=== PATIENT | male | born 1955 | race Caucasian/White ===

== ENCOUNTER 2018-08-25 07:30 | Inpatient (IN) | payer BC ==
--- NOTE | 2018-08-14 13:37 | HP ---
HISTORY AND PHYSICAL: DATE OF ADMISSION/SURGERY: 08/25/18 DATE OF OFFICE VISIT: 08/14/18 SURGEON: Jana Pritchard MD.* (DICTATED BY DANIEL JIMENEZ) PROCEDURE: Right total knee arthroscopy. CHIEF COMPLAINT: Right left knee pain. HISTORY OF PRESENT ILLNESS: Mr. Amezquita is a 63-year-old gentleman with continued complaints of right knee pain. He has failed conservative treatment and elected to proceed with a right total knee arthroscopy. PAST MEDICAL HISTORY: Denies. PAST SURGICAL HISTORY: Cataract surgery and surgery for detached retina. CURRENT MEDICATIONS: None. ALLERGIES: None. FAMILY HISTORY: Diabetes, cancer, and coronary artery disease. SOCIAL HISTORY: He is a 63-year-old gentleman who lives with his . He does not smoke or use drugs. Uses occasional alcohol. REVIEW OF SYSTEMS: A complete 14-point of review of systems was reviewed with the patient and was all negative or noncontributory. He denies history of DVT, PE, hepatitis, HIV, or anesthesia problems. PHYSICAL EXAMINATION GENERAL: He is well developed, well nourished, in no acute distress. VITAL SIGNS: He stands 5 feet 11 inches tall, weighs 193 pounds. Blood pressure 128/76, his heart rate is 68. HEENT: Normocephalic, atraumatic. NECK: Supple. No palpable lymph nodes. PULMONARY: Lungs are clear to auscultation bilaterally. CARDIO: Regular rate and rhythm. Strong S1, S2. ABDOMEN: Soft, nontender, nondistended. NEUROLOGICAL: He is alert and oriented x3. MUSCULOSKELETAL: Right lower extremity: The skin is intact. There are no open wounds or abrasions. There is a moderate joint effusion of the right knee. Range of motion is 10 to 100 degrees of flexion with patellofemoral crepitus. He has a 2+ dorsalis pedis pulse. He is able to dorsiflex and plantarflex and has intact sensation. ASSESSMENT AND PLAN: Mr. Amezquita is a 63-year-old gentleman with end-stage osteoarthritis of the right knee. He has failed conservative treatment and elected to proceed with a right total knee arthroplasty. The surgery is scheduled for 08/25/[address] Pritchard discussed the risks and benefits of the surgery at today's visit and all of his questions were answered. He will follow up with Dr. Pritchard 2 weeks after the surgery. DANIEL JIMENEZ [id number]/[facility] #: [id number] SANGEETA
[~2018-08-25 07:30] MED LIST: Acetaminophen IV 1GM/100ML * 1,000 MG/100 ML VIAL IVPB ONE; Buffered Lidocaine 1% SYRIN* 1 ML/SYRINGE INTRADERM ONE; Dexamethasone IV* 4 MG/ML 1 ML (4 MG) IV SLOW PU ONE; Famotidine IV* 10 MG/ML 2 ML (20 mg) IV ONE; Gabapentin CAP(*) 300 MG PO ONE; Lactated Ringers 1000 ML Bag* 1,000 ML IV SCH; Tranexamic Acid 1,000 MG in NS 0.9% 50 ML* (outpatient use) IV SCH; celeCOXIB CAP* 200 MG PO ONE
--- OUTSIDE RECORDS SUMMARY | 2018-08-25 08:02 | XMS REPORT | Continuity of Care Document ---
:1955 External Reference #:[id number] Author Name Carolyne Aguilar Care Team Providers Name Role Phone Jude Oliva MD Primary Care Physician Unavailable Payers Date Identification Numbers Payment Provider Subscriber Policy Number: [id number] [facility] Victor Manuel Amezquita PayID: [id number] [address] [place] [address] Advance Directives Description No Information Available Problems Date Description Provider Status Onset: 04/10/2018 Localized, primary osteoarthritis Jana Pritchard M.D. Active Family History Date Family Member(s) Observation Comments General Diabetes General caNcer Social History Type Date Description Comments Sex Unknown Lives With Spouse Smokeless Tobacco Never Used Smokeless Tobacco ETOH Use Occasionally consumes alcohol Tobacco Use Start: Unknown Patient has never smoked Smoking Status Reviewed: 08/14/18 Patient has never smoked Exercise Type/Frequency Exercises regularly Allergies, Adverse Reactions, Alerts Description No Known Drug Allergies Medications Medication Date Status Form Strength Qnty SIG Indications Ordering Provider No Active Active Unknown Medications 018 Meloxicam Hx Tablets 15mg 30tabs 1 by mouth M25.561 Jana 018 - every day Reji Pritchard 018 No Active Hx Unknown Medications 014 - 018 No Active Hx Unknown Medications 014 - 014 Oxycodone/Acet Hx Tablets 5-325mg 80tabs 1-2 Jana aminophen 014 - tablets po Reji Pritchard q4-6hours 014 prn pain Medications Administered in Office Medication Date Status Form Strength Qnty SIG Indications Ordering Provider Teo Administered Injection Jana 40MG 018 Reji Pritchard Immunizations Description No Information Available Vital Signs Date Vital Result Comment 08/14/2018 8:14am Height 71 inches 5'11" Weight 193.00 lb Heart Rate 68 /min BP Systolic 128 mmHg BP Diastolic 76 mmHg BMI (Body Mass Index) 26.9 kg/m2 05/11/2018 8:04am Height 71 inches 5'11" Heart Rate 68 /min BP Systolic 122 mmHg BP Diastolic 84 mmHg Body Temperature 97.2 F Pain Level 0 04/10/2018 8:45am Height 71 inches 5'11" Weight 195.50 lb Heart Rate 65 /min BP Systolic 130 mmHg BP Diastolic 82 mmHg Respiratory Rate 17 /min Pain Level 7 BMI (Body Mass Index) 27.3 kg/m2 11/05/2013 8:25am Height 71 inches 5'11" Weight 190.00 lb Heart Rate 74 /min BP Systolic 141 mmHg BP Diastolic 81 mmHg BMI (Body Mass Index) 26.5 kg/m2 10/06/2013 11:56am Height 71 inches 5'11" Weight 190.00 lb Heart Rate 64 /min BMI (Body Mass Index) 26.5 kg/m2 09/03/2013 8:19am Height 71 inches 5'11" Weight 190.00 lb Heart Rate 60 /min BP Systolic 123 mmHg BP Diastolic 80 mmHg BMI (Body Mass Index) 26.5 kg/m2 08/06/2013 8:36am Height 71 inches 5'11" Weight 190.00 lb Heart Rate 72 /min BMI (Body Mass Index) 26.5 kg/m2 07/21/2013 1:20pm Height 71 inches 5'11" Weight 190.00 lb Heart Rate 70 /min BP Systolic 124 mmHg BP Diastolic 83 mmHg BMI (Body Mass Index) 26.5 kg/m2 Results Test Date Facility Test Result H/L Range Note Laboratory test 10/07/2013 [facility] Calcium 9.3 mg/dL N 8.6- 10.[address] [place] [address] [phone] Vitamin D, 25 10/07/2013 [facility] 25-Hydroxy <4.0 ng/mL N Hydroxy [address] Vitamin D2 [place] [address] [phone] 25-Hydroxy Vitamin D3 22 ng/mL N 25-Hydroxy Vitamin D Total 22 ng/mL N 1 1 -- REFERENCE VALUE -- 25-HYDROXY D TOTAL (D2+D3) Optimum levels in the healthy population are 20-50, patients with bone disease may benefit from higher levels within this range. Test Performed by: [facility] [place] [address] Cena: Harsh Lynne III, M.D. Procedures Date Code Description Status 04/10/2018 41775 Inject/Drain Joint/Bursa Major W/O US Completed 11/05/2013 45687 Rad Exam; Ankle Limited Completed 11/05/2013 93206 Rad Exam; Knee, Ap&L Completed 10/19/2013 [id number] Bone Mineral Density Test Completed 10/06/2013 45504 Rad Exam; Tib-Fib Completed 10/06/2013 58217 Rad Exam; Ankle Comp Completed 09/03/2013 89918 Rad Exam; Ankle Comp Completed 09/03/2013 23059 Rad Exam; Tib-Fib Completed 08/06/2013 58011 Rad Exam; Ankle Limited Completed 08/06/2013 35368 Rad Exam; Tib-Fib Completed 07/21/2013 37607 Rad Exam; Ankle Comp Completed 07/21/2013 24703 Rad Exam; Tib-Fib Completed 07/21/2013 25278 Closed TX Prox/Shaft Fibula W/O Manip Completed 10/29/2007 77894 ECHO/Stress Completed 10/29/2007 82964 ECHO/Stress Completed 10/29/2007 54466 ECHO/Stress Completed 10/29/2007 97332 Stress Test Completed 10/29/2007 17468 Stress Test Completed Encounters Type Date Location Provider Dx Diagnosis Office Visit 05/11/2018 Orthopedic Jana Pritchard, M25.561 Pain in right 8:00a [facility] knee M25.461 Effusion, right knee M17.11 Unilateral primary osteoarthritis, right knee Office Visit 04/10/2018 8:30a [facility] Jana Pritchard, M25.561 Pain in right [facility] knee M25.461 Effusion, right knee M17.11 Unilateral primary osteoarthritis, right knee Office Visit 11/05/2013 8:30a [facility] Jana Pritchard, 823.81 FX Unspec Part Of [facility].Rodney Mendoza Fibula Alone Closed 824.8 FX Ankle Unspec Closed Office Visit 07/21/2013 1:00p [facility] Jana Pritchard, 823.81 FX Unspec Part Of .Helen Mendoza Fibula Alone Closed 824.8 FX Ankle Unspec Closed 823.01 FX Fibula Alone Upper End Closed Plan of Treatment Future Appointment(s):09/04/2018 8:45 am - Jana Pritchard M.D. at [facility]08/25/2018 8:30 am - Sami Wells PA-C at [facility].08/25/2018 8:30 am - DANIEL Solano at [facility].08/25/2018 8:30 am - Jana Pritchard M.D. at [facility]08/14/2018 - Jana Pritchard M.D.M25.561 Pain in right kneeNew Xrays:Knee 3 Views RT, Ordered: 08/14/18Follow up:Follow up: 2 weeks after xfmtmltX38.461 Effusion, right kneeM17.11 Unilateral primary osteoarthritis, right knee
[2018-08-25] MEDS ORDERED: celeCOXIB CAP* 100 MG ONE (08:39)
[2018-08-25] MEDS ORDERED: Famotidine IV* 10 MG/ML 2 ML (20 mg) ONE (08:39)
[2018-08-25] MEDS ORDERED: ceFAZolin 2 GM in NS PREMIX(*) 2 GM/100 ML BAG IVPB ONE (08:39)
[2018-08-25] MEDS ORDERED: Gabapentin CAP(*) 300 MG ONE (08:39)
[2018-08-25] MEDS ORDERED: Dexamethasone IV* 4 MG/ML 1 ML (4 MG) ONE (08:39)
[2018-08-25] MEDS ORDERED: Acetaminophen IV 1GM/100ML * 100 ML ONE (08:41)
[2018-08-25] MEDS ORDERED: ROPIVACAINE 5 MG/ML 30 ML BTL (0.5%) ONE (09:40)
[2018-08-25] MEDS ORDERED: Propofol* 10 MG/ML 20 ML BTL ONE (09:45)
[2018-08-25] MEDS ORDERED: Bupivacaine 0.5% SDV PF* 30ML VIAL ONE (09:45)
[2018-08-25] MEDS ORDERED: KETAMINE HCL* 50 MG/ML 10 ML VIAL ONE (09:45)
[2018-08-25] MEDS ORDERED: Ondansetron INJ* 2 MG/ML VIAL ONE (09:45)
[2018-08-25] MEDS ORDERED: Midazolam* 1 MG/ML 5 ML VIAL (5 MG) ONE ×2 (09:45→11:09)
[2018-08-25] MEDS ORDERED: Bupivacaine 0.5%* 50 ML VIAL ONE (09:55)
[2018-08-25] MEDS ORDERED: fentaNYL* 50 MCG/ML 2 ML VIAL (100 MCG VIAL) ONE (11:10)
[2018-08-25] MEDS ORDERED: HYDROmorphone INJ1* 1 MG/ML SYRINGE IV PRN (12:10)
[2018-08-25] MEDS ORDERED: DiMENhydriNATE IV* 50 MG/ML VIAL IV PUSH PRN (12:10)
[2018-08-25] MEDS ORDERED: Naloxone* 0.4 MG/ML 1 ML VIAL IV PRN (12:10)
[2018-08-25] MEDS ORDERED: fentaNYL* 50 MCG/ML 2 ML VIAL (100 MCG VIAL) IV PRN (12:10)
[2018-08-25] MEDS ORDERED: Ondansetron INJ* 2 MG/ML VIAL IV PRN ×2 (12:10→13:21)
[2018-08-25] MEDS ORDERED: Bisacodyl SUPP* 10 MG SUPP PR PRN (13:21)
[2018-08-25] MEDS ORDERED: Cyclobenzaprine TAB* 10 MG PO PRN (13:21)
[2018-08-25] MEDS ORDERED: Polyethylene Glycol 3350* 17 GM PACKET PO PRN (13:21)
[2018-08-25] MEDS ORDERED: Ondansetron TAB* 4 MG PO PRN (13:21)
[2018-08-25] MEDS ORDERED: Morphine 4 MG/ML VIAL (1 ml) 4 MG/ML VIAL IV PRN (13:21)
[2018-08-25] MEDS ORDERED: oxyCODONE/Acetamin 5/325 MG* TAB PO PRN (13:21)
[2018-08-25] MEDS ORDERED: diPHENhydraMINE IV* 50 MG/ML 1 ml VIAL (BENADRYL) IV PRN (13:21)
[2018-08-25] MEDS ORDERED: Magnesium Hydroxide LIQ* 30 ML UDC PO PRN (13:21)
[2018-08-25] MEDS ORDERED: traMADol TAB* 50 MG PO PRN (13:21)
--- NOTE | 2018-08-25 15:51 | PN ---
Progress Note - Progress Note Date of Service: 08/25/18 SOAP: Subjective: [Pt seen in PACU. Feeling well. No complaints] Objective: [General: Pt is alert and oriented. NAD MSK, RLE: Currently able to slightly df/pf right foot. Left foot is unable to df /pf at this time. ] Assessment: [POD 0 RTKA] Plan: [PT/OT Abx x24 hours to the floor once he is able to df/pf ]
[2018-08-25] MEDS: Lactated Ringers 1000 ML Bag* 1,000 ML IV SCH (17:44)
[2018-08-25] MEDS: oxyCODONE TAB* 5 MG TAB PO PRN (20:31)
[2018-08-25] MEDS: Magnesium Hydroxide LIQ* 30 ML UDC PO SCH (20:36)
[2018-08-25] MEDS: Docusate CAP* 100 MG PO SCH (20:36)
[2018-08-25] MEDS: ceFAZolin 1 GM in Dextrose (*) 1 GM/50 ML BAG IVPB SCH (20:36)
--- NOTE | 2018-08-25 21:23 | OP ---
DATE OF OPERATION: 08/25/18 - ROOM #349 DATE OF : 51 ATTENDING SURGEON: Jana Pritchard MD. PARACHUTE TAPER: DANIEL Stern. Ms. Warren did help throughout the procedure with preparation of the leg, wound retraction, manipulation of the knee, and wound closure. ANESTHESIOLOGIST: Dr. Gomes. ANESTHESIA: Spinal. 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 OPERATIVE PROCEDURE: Right total knee arthroplasty. TOURNIQUET TIME: 54 minutes. COMPLICATIONS: None. ESTIMATED BLOOD LOSS: 200 cc. SPECIMENS: Bone and cartilage from the right knee joint sent to Pathology. HARDWARE: This is cemented [employer] total knee arthroplasty hardware. Two packages of Simplex bone cement. For the femur, a size 7 right posterior stabilized Legion Oxinium femoral component. For the tibia, a size 6 right tibial baseplate Pamela II. For the insert, a 9-mm posterior stabilized articular insert, size 5/6 and for the patella, a 35-mm, 3-peg all-poly patella with 7.5 thickness. BRIEF HISTORY/INDICATIONS: Mr. Amezquita is a 63-year-old gentleman with years of increasingly severe right knee pain. Radiographs and MRI confirmed bone-on- bone arthritis with intraarticular chondrocalcinosis and loose bodies. The patient failed conservative treatment with antiinflammatories, pain medication, intra- articular injections, and physical therapy. Due to continued pain and decreased quality of life, he elected to undergo right total knee arthroplasty. INTRAOPERATIVE FINDINGS: Intraoperatively, the patient was noted to have extensive wear of the medial and patello-emoral compartments with exposed subchondral bone and complete loss of cartilage. He had extensive calcified loose bodies in the suprapatellar pouch, one of which measured at least 3 cm in diameter. DESCRIPTION OF PROCEDURE: Mr. Amezquita was identified in the preanesthesia unit. His right lower extremity was marked as the correct operative site. Informed consent was signed and placed in the chart. The patient was taken to the operating room and placed under spinal anesthesia. A Parr catheter was placed. Tourniquet was placed on the right thigh. Right lower extremity was prepped and draped in the usual sterile fashion. Preop time-out was made to correctly identify the patient, side and site. Appropriate perioperative antibiotics were given within 1 hour of incision. Tourniquet was inflated and total tourniquet time for this procedure was 54 minutes. A midline incision was made with a 10 blade and carried down to the extensor mechanism. New 10 blade was used to make a standard medial parapatellar arthrotomy. The patella was subluxed laterally. Electrocautery was used to subperiosteally elevate the soft tissue from the superomedial tibia to the mid sagittal plane. Multiple loose bodies were in the suprapatellar pouch. These were carefully removed. The knee was flexed up. The anterior horn of the lateral meniscus and ACL were sharply released. A drill was used to enter the distal femur. Intramedullary distal femoral cutting guide was pinned on the distal femur. Oscillating saw was used to make the distal femoral cut. Next, the external rotation guide was pinned on the distal femur. Distal femur was sized to a size 7. A size 7 multi-cutting jig was pinned on the distal femur. Oscillating saw was used to make the appropriate 4 chamfer cuts. The tibia was subluxed anteriorly and PCL was completely released. Extramedullary tibial cutting guide was pinned on the proximal tibia. Oscillating saw was used to make the proximal tibial cut perpendicular to the mechanical axis of the tibia. The bone was carefully removed. The knee was brought out into full extension. Spacer block had good fit with the knee in full extension. There was good medial and lateral ligamentous balancing. Flexion and extension gaps were well balanced. The knee was flexed up. Lamina guillotine operator was placed both medially and laterally. Any remaining meniscus was carefully removed using electrocautery. Curved osteotome was used to remove any posterior osteophytes. Tibial tray and drop delma were placed and once again confirmed a satisfactory tibial cut. A size 7 right femoral trial was impacted onto the distal femur and had good fit and stability. The box for the posterior stabilized implant was prepared using a reamer and box-cut osteotome. A size 6 tibial tray trial with a 9-mm insert trial was placed and the knee was taken through a range of motion. The knee had full extension to 130 degrees of flexion with satisfactory patellofemoral tracking. The patella was everted. 7 mm of patellar bone and cartilage was carefully removed using an oscillating saw. The patella was sized to a size 35. Three peg holes were drilled through the size 35 guide. A 35 trial patella was placed and the knee was taken through range of motion. There was satisfactory patello-femoral tracking. All trials were carefully removed. The tibia was subluxed anteriorly and sized to a size 6. Proximal tibia was prepared using a size 6 keel punch. All bony cut surfaces were copiously irrigated with sterile saline and dried. Final implants were cemented into place starting with the tibia, followed by the femur , and last the patella. The 9-mm insert trial was placed and the knee was brought out into full extension. Tourniquet was turned down at 54 minutes. The knee was copiously irrigated with sterile saline. Electrocautery was used to obtain meticulous hemostasis. Once the cement had fully cured, the insert trial was removed. Any excess cement was removed from around the capsule and hardware. A 9-mm insert trial was chosen as the final insert. This was locked into position on the tibial tray. Stability of the insert was checked and rechecked and noted to be stable. The extensor mechanism was closed using interrupted #1 Vicryl. The rest of the incision was closed in a layered fashion using 0 and 2-0 Vicryl. The skin was closed using running 3-0 nylon suture. Sterile Xeroform, 4x4's, and Webril were used to cover the incision. Dontae wrap and cold pack were placed over this. The patient's anesthesia was reversed without difficulty. He was taken to the PACU in stable condition. Intended weightbearing will be weightbearing as tolerated. Intended DVT prophylaxis will be Eliquis. [id number]/[facility] #: [id number] [facility] CENTERAydin
[2018-08-25] MEDS: oxyCODONE/Acetamin 5/325 MG* TAB PO PRN (22:49)
[2018-08-25] MEDS: Acetaminophen TAB* 325 MG PO SCH (23:20)
[2018-08-26] MEDS: oxyCODONE TAB* 5 MG TAB PO PRN ×3 (00:46→09:08)
[2018-08-26] MEDS: oxyCODONE/Acetamin 5/325 MG* TAB PO PRN ×4 (02:53→14:56)
[2018-08-26] MEDS: Lactated Ringers 1000 ML Bag* 1,000 ML IV SCH (02:55)
[2018-08-26] MEDS: ceFAZolin 1 GM in Dextrose (*) 1 GM/50 ML BAG IVPB SCH ×2 (03:45→13:03)
[2018-08-26 05:40] LABS: Hematocrit 33 % (42-52); Hemoglobin 11.2 g/dl (14.0-18.0); Mean Platelet Volume 9.1 fL (7.4-10.4); Platelet Count 186 10^3/ul (150-450)
[2018-08-26 06:04] LABS: BUN/Creatinine Ratio 18.1 (8-20); Calcium 8.5 mg/dL (8.6-10.3); EGFR African American 112.5 (>60); Potassium 4.3 mmol/L (3.5-5.0)
[2018-08-26] MEDS: Acetaminophen TAB* 325 MG PO SCH ×2 (06:18→13:06)
[2018-08-26] MEDS ORDERED: Apixaban* 2.5 MG TAB PO SCH (09:00)
[2018-08-26] MEDS: Docusate CAP* 100 MG PO SCH (09:09)
[2018-08-26] MEDS: Magnesium Hydroxide LIQ* 30 ML UDC PO SCH (09:09)
--- NOTE | 2018-08-26 10:34 | PN ---
Progress Note - Progress Note Date of Service: 08/26/18 SOAP: Subjective: []Patient seen and examined at bedside. He feels very well and desires DC home. Heart rate has been low, patient is asymptomatic and reports heart rate is generally around 60. Denies CP, irregular heart beats, SOB, dizziness, nausea. Objective: []General: Well appearing, NAD RLE: Right knee dressing changed, incision CDI without erythema or discharge. Thigh is soft. DF/PF intact, DP2+, sensation intact to light touch distally. Calves supple and nontender without erythema, edema or palpable cords Assessment: []POD 1 RTKA] Plan: [WBAT PT/OT eliquis 2.5 mg po BID DC home today Vital Signs Temp 98.9 F 08/26/18 07:58 Pulse 60 08/26/18 08:04 Resp 18 08/26/18 09:08 BP 113/68 08/26/18 08:04 Pulse Ox 99 08/26/18 07:58 Intake & Output 08/25/18 08/26/18 08/26/18 18:59 06:59 18:59 Intake Total 3150 2475 240 Output Total 2550 1075 Balance 600 1400 240 Weight 191 lb Intake: IV Fluids 2550 1035 ABX - CEFAZOLIN 55 LR 2500 980 NS 50ML, Cefazolin 1G 50 Oral 600 1440 240 Output: Parr 2550 1075 Laboratory Last Values Hgb 11.2 g/dl (14.0-18.0) L 08/26/18 05:29 Hct 33 % (42-52) L 08/26/18 05:29 Plt Count 186 10^3/ul (150-450) 08/26/18 05:29 MPV 9.1 fL (7.4-10.4) 08/26/18 05:29 Sodium 136 mmol/L (135-145) 08/26/18 05:29 Potassium 4.3 mmol/L (3.5-5.0) 08/26/18 05:29 Chloride 104 mmol/L (101-111) 08/26/18 05:29 Carbon Dioxide 27 mmol/L (22-32) 08/26/18 05:29 Anion Gap 5 mmol/L (2-11) 08/26/18 05:29 BUN 15 mg/dL (6-24) 08/26/18 05:29 Creatinine 0.83 mg/dL (0.67-1.17) 08/26/18 05:29 Est GFR ( Amer) 112.5 (>60) 08/26/18 05:29 Est GFR (Non-Af Amer) 93.0 (>60) 08/26/18 05:29 BUN/Creatinine Ratio 18.1 (8-20) 08/26/18 05:29 Glucose 180 mg/dL (70-100) H 08/26/18 05:29 Calcium 8.5 mg/dL (8.6-10.3) L 08/26/18 05:29
--- NOTE | 2018-08-26 11:49 | DS ---
AMENDED REPORT NOW INCLUDES DESIGNATED COSIGNER DISCHARGE SUMMARY: DATE OF ADMISSION: 08/25/18 DATE OF DISCHARGE: 08/26/18 DATE OF OPERATION: 08/25/18 PROVIDER: Dr. Jana Pritchard.* (DICTATED BY DANIEL ENAMORADO) PREOPERATIVE DIAGNOSIS: End-stage degenerative osteoarthritis of the right knee joint with synovial chondromatosis. OPERATIVE PROCEDURE: Right total knee arthroplasty. HISTORY: Mr. Amezquita is a 63-year-old gentleman with years of increasingly severe right knee pain. He failed conservative management and elected to undergo a right total knee arthroplasty. HOSPITAL COURSE: The patient was admitted to [facility] on . He underwent a right total knee arthroplasty without complication. Postop day 1, he was well appearing, in no acute distress. Dressing was changed. Incision clean, dry, intact without erythema or discharge. Thigh was soft. Dorsiflexion and plantarflexion intact. DP 2+. Sensation intact to light touch distally. Vital signs: Temperature 98.9, pulse 60, respiratory rate 18, blood pressure 113/68, pulse ox 99 on room air. The patient has had low heart rate throughout his stay, as low as 43 in the PACU and has been hovering around 60 all this morning. The patient confirms that his regular heart rate is roughly 60 and he is asymptomatic. DISCHARGE MEDICATIONS: Discontinue ibuprofen 400 mg at home. New home medications include: 1. Colace 100 mg p.o. b.i.d. p.r.n. constipation. 2. Percocet 5/325 one to two tabs every 4 to 6 hours as needed for pain, max daily dose of 10. 3. Eliquis 2.5 mg p.o. b.i.d. for 30 days. DISCHARGE INSTRUCTIONS: The patient will be weightbearing as tolerated. He will do outpatient physical therapy. He will be on Eliquis 2.5 mg twice daily for 1 month. Pain control with Percocet 5/325 one to two tabs every 4 to 6 hours as needed for pain, max daily dose of 10. Follow up with Dr. Pritchard in 10 to 14 days. DISPOSITION: He is discharged to home in good condition on 08/26/18. SAMMY NUÑEZ, [place] [id number]/[facility] #: [id number] SANGEETA
[2018-08-26 14:09] VITALS: BP 122/66
== END 2018-08-26 15:30 | disposition home or self-care (01) | DRG 302 ==
LOC: AA 07:59 → SSU 17:54
PROVIDERS: ADMIT Orthopaedic Surgery Adult Reconstructive Orthopaedic Surgery; ATTEND Orthopaedic Surgery Adult Reconstructive Orthopaedic Surgery
PROC: 0SRC069 Replacement of Right Knee Joint with Oxidized Zirconium on Polyethylene Synthetic Substitute, Cemented, Open Approach (ICD-10-PCS; principal; 2018-08-25 11:00)
DX: M17.11 Unilateral primary osteoarthritis, right knee (principal); M11.261 Other chondrocalcinosis, right knee; M25.761 Osteophyte, right knee; M25.461 Effusion, right knee; D48.0 Neoplasm of uncertain behavior of bone and articular cartilage; Z83.3 Family history of diabetes mellitus; Z82.49 Family history of ischemic heart disease and other diseases of the circulatory system; Z98.42 Cataract extraction status, left eye; Z98.41 Cataract extraction status, right eye; Z80.9 Family history of malignant neoplasm, unspecified; Z72.89 Other problems related to lifestyle
CPT/HCPCS: 36415; 80048; 85014; 85018; 85049; A9270-GY; C1776; J0690; J1100; J2250; J2405; J2704; J2795; J3010